=== PATIENT | female | born 1985 | race Caucasian/White ===

== ENCOUNTER 2017-01-11 19:39 | Emergency (ER) | payer BC ==
[~2017-01-11] VITALS: Ht 165.1 cm; Wt 84.8 kg
[2017-01-11 19:53] VITALS: Ht 165.1 cm; Wt 84.8 kg
[2017-01-11] MEDS ORDERED: GUAI-782 PO (20:11)
[2017-01-11] MEDS ORDERED: GUAI118L98 PO (20:11)
[2017-01-11] MEDS ORDERED: NORE7TAB PO (20:11)
[2017-01-11] MEDS ORDERED: ONDANSETRON 4mg/2ml INJECTION IV ONE (20:15)
[2017-01-11] MEDS ORDERED: NORMAL SALINE 1,000 ML IV ONE ×2 (20:15→22:15)
--- NOTE | 2017-01-11 20:16 | ERPDOC ---
Departure Disposition Decision Date: Jan 11, 2017 Disposition Decision Time: 23:53 Disposition: 01 DISCHARGED HOME, SELF-CARE Impression Impression Impression: Primary Impression: Gastroenteritis Severity: Moderate Condition: Stable Seen By: Mid-level only Referrals: MATT BURK MD (Family) Patient Instructions: Gastroenteritis (ED) Problems/Meds/Labs Reviewed?: Yes Medications reviewed and manag: Yes Additional Instructions: Take the Compazine as needed for nausea/vomiting. Take small frequent sips of clear liquids at home to maintain hydration. If she is unable to keep fluids down, fever, or abdominal pain or if repeated vomiting then return to ER. Follow up care ordered?: Yes Mental Status: Alert Scripts Prochlorperazine Maleate (Compazine) 10 Mg Tablet 10 MG PO TID, #7 TAB 0 Refills Take 1 tablet, by mouth, 3 times a day. Prov: RENE LEMON DIRECTOR OF DIRECT MARKETING 01/11/17 HPI - Abdominal Pain General Chief Complaint: Nausea,Vomiting,Diarrhea Stated Complaint: VOMITING Time Seen by Provider: 19:54 Source: patient History/Exam Limitations: no limitations HPI - Abdominal Pain Initial Comments She had onset of nausea/vomiting and diarrhea this morning. Has persisted today. Has had nausea for the last few days but it has gotten worse. She denies any fever or chills but has been very fatigued. Has had some generalized abdominal cramping at times but denies any sharp abdominal pain. Has not had any known sick contacts. Has not taken much at home for medications. Has been having some muscle cramps in her bilateral calves. Occurred At: home Onset: Gradual Duration: 6-12 hrs Quality: cramping Location: generalized abdomen Radiation: no radiation Associated Symptoms: back pain, fatigue, nausea/vomiting, DENIES: chest pain, diaphoresis, fever/chills, headache, heartburn, rash, shortness of breath, swelling/mass in abdomen, syncope, weakness Hx of Similar Symptoms: No Allergies: Coded Allergies: No Known Drug Allergies (Verified Allergy, Unknown, 01/11/17) Past History Past Medical History Pt denies signifigant PMH Surgical History Denies Surgeries Family History Family History: Negative Social History Smoking Status: Never smoker Substance Use Type: does not use Alcohol Intake: none Review of Systems Constitutional Constitutional: fatigue, weakness, DENIES: chills, dizziness, fever Cardiovascular Cardiac: DENIES: chest pain, orthopnea Rhythm/Rate: DENIES: irregular beat, palpitations Pulmonary Respiratory: DENIES: cough, dyspnea, sputum, tachypnea GI Upper Abdomen: nausea, pain, vomiting Lower Abdomen: diarrhea, pain, DENIES: constipation Integumentary Skin: DENIES: rash Neurological General: DENIES: headache, numbness, tingling, weakness Physical Exam General General Nourishment: well nourished, well developed, appears stated age, no acute distress, adult General Body Habitus: well groomed Vitals and Pain First Documented Vital Signs Date Time Temp Pulse Resp B/P Pulse Ox O2 Delivery O2 Flow Rate FiO2 01/11/17 19:53 72 18 123/76 97 Room Air Weight: Kilograms: Height (feet): Height (inches): Triage Pain Scale: RN VS reviewed by Provider: Yes Normal Exams: Neck: Full range of motion, without adenopathy, JVD, bruits or thyromegaly Chest/Resp: Clear all su, with good airflow, and symmetry bilaterally CV: Regular rate and rhythm, without murmur or gallop, Pulses 2+ all extremities, capillary refill, <2 seconds all ext., no pedal edema noted Abdomen: Bowel sounds positive, soft, non-tender, non-distended, no hepatosplenomegaly, masses or bruits noted Lymphatic: No lymphadenopathy, or lymphedema noted Integumentary: No rashes, hives, or bruising noted Neurologic: Patient is alert, and oriented Psychiatric: Patient exhibits, appropriate attention, emotion and affect ENMT (brief) ENMT Brief: NOT FOUND: mucosa moist (slightly dry mucus membranes) Differential Diagnoses Considering: Dehydration, Food Poisoning, Gastroenteritis, Hyponatremia, Hypokalemia, Hypoglycemia Progress Results/Orders Orders Procedure Category Date Status Time Iv Lock (Ed Only) EDM 01/11/17 Transmitted 20:02 Cbc W/Auto LAB 01/11/17 Complete Diff-Reflex Manual Cmp - Comprehensive LAB 01/11/17 Complete Metabolic Lipase LAB 01/11/17 Complete Normal Saline (Normal PHA 01/11/17 Complete Saline Iv) 20:15 Ondansetron Inj PHA 01/11/17 Complete (Zofran) 20:15 Ua, Dip Wreflex LAB 01/11/17 [employer]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 21:16 Promethazine PHA 01/11/17 Complete (Phenergan) 21:30 Morphine Sulfate PHA 01/11/17 Complete (Morphine) 21:30 Normal Saline (Normal PHA 01/11/17 Complete Saline Iv) 22:15 Prochlorperazine PHA 01/11/17 Complete (Compazine) 23:15 Prochlorperazine PHA 01/12/17 Complete (Prepack) (Compazine 00:00 Lab Results Laboratory Tests Test 01/11/17 20:27 White Blood Count 16.9T/MM3 Red Blood Count 5.01M/MM3 Hemoglobin 15.2GM/DL Hematocrit 44.3% Mean Corpuscular Volume 88.4UM3 Mean Corpuscular Hemoglobin 30.3UUG Mean Corpuscular Hemoglobin Concent 34.3GM/DL RDW Standard Deviation 36.4FL Platelet Count 374T/MM3 Mean Platelet Volume 9.2UM3 Immature Granulocyte % (Auto) % Neutrophils (%) (Auto) % Lymphocytes (%) (Auto) % Monocytes (%) (Auto) % Eosinophils (%) (Auto) % Basophils (%) (Auto) % Absolute Immature Granulocyte (auto T/MM3 Absolute Neutrophils (auto) T/MM3 Absolute Lymphocytes (auto) T/MM3 Absolute Monocytes (auto) T/MM3 Absolute Eosinophils (auto) T/MM3 Absolute Basophils (auto) T/MM3 Neutrophils % (Manual) 81.0% Band Neutrophils % 5.0% Lymphocytes % (Manual) 10.0% Monocytes % (Manual) 3.0% Basophils % (Manual) 1.0% Absolute Neutrophils (Manual) 13.7T/MM3 Band Neutrophils # 0.8T/MM3 Lymphocytes # (Manual) 1.7T/MM3 Monocytes # (Manual) 0.5T/MM3 Basophils # (Manual) 0.2T/MM3 Red Cell Morphology Comment Normal Turbidity < 20 Sodium Level 144MEQ/L Potassium Level 4.2MEQ/L Chloride Level 103MEQ/L Carbon Dioxide Level 25MEQ/L Anion Gap 16MEQ/L Blood Urea Nitrogen 16.0MG/DL Creatinine 1.0MG/DL Glomerular Filtration Rate Calc 65 BUN/Creatinine Ratio 16RATIO Glucose Level 156MG/DL Calculated Osmolality 281MOSM/KG Calcium Level 9.9MG/DL Total Bilirubin 1.00MG/DL Icterus Index < 2 Aspartate Amino Transf (AST/SGOT) 33U/L Alanine Aminotransferase (ALT/SGPT) 34U/L Alkaline Phosphatase 86U/L Total Protein 8.8G/DL Albumin 4.8G/DL Globulin 4.0G/DL Albumin/Globulin Ratio 1.2RATIO Lipase 132U/L Chemistry Specimen Hemolysis < 15 Medications Current ED Medications Sodium Chloride (Normal Saline IV) 1,000 ml @ 1,000 mls/hr Q1H ONCE IV Last administered on 01/11/17 20:23; Start 01/11/17 at 20:15; Stop 01/11/17 at 21:14; Status DC Ondansetron HCl (Zofran) 4 mg O ONCE IV Last administered on 01/11/17 20:24; Start 01/11/17 at 20:15; Stop 01/11/17 at 20:16; Status DC Promethazine HCl (Phenergan) 25 mg O ONCE IV Last administered on 01/11/17 21: 30; Start 01/11/17 at 21:30; Stop 01/11/17 at 21:31; Status DC Morphine Sulfate 2 mg 2 mg O ONCE IV Last administered on 01/11/17 21:42; Start 01/11/17 at 21:30; Stop 01/11/17 at 21:31; Status DC Sodium Chloride (Normal Saline IV) 1,000 ml @ 1,000 mls/hr Q1H ONCE IV Last administered on 01/11/17 22:48; Start 01/11/17 at 22:15; Stop 01/11/17 at 23:14; Status DC Prochlorperazine Edisylate (Compazine) 10 mg O ONCE IV Last administered on 23:22; Start 01/11/17 at 23:15; Stop 01/11/17 at 23:16; Status DC Prochlorperazine Maleate (COMPAZINE (PrePack)) 1 pack O ONCE SENT HOME ; Start 01/12/17 at 00:00; Stop 01/12/17 at 00:01; Status DC Progress Progress WBC is elevated at 16.9 with 80% neutrophils and 5% bands. CMP and lipase today are normal. She continues to deny pain at all but the nausea persists after Zofran given. Did give one does of Promethazine and she does fall asleep. She awakens to nurse for reevaluation and again c/o nausea. After compazine given she is able to rest and does states that there is a decrease in her nausea quite a bit. Will go ahead and dismiss her to home and have her continue to take the Compazine as needed. Strict return precautions are given. RENE LEMON APRN Jan 11, 2017 20:16
[2017-01-11 20:36] LABS: HCT - HEMATOCRIT 44.3 % (36-46); HGB - HEMOGLOBIN 15.2 GM/DL (12-16); MEAN CORPUSCULAR HGB 30.3 UUG (26-34); MEAN CORPUSCULAR HGB CONC(MCHC 34.3 GM/DL (31-37); MEAN CORPUSCULAR VOLUME 88.4 UM3 (80-100); MEAN PLATELET VOLUME 9.2 UM3 (9.4-12.4); RED BLOOD COUNT 5.01 M/MM3 (4.00-5.20); WBC - WHITE BLOOD COUNT 16.9 T/MM3 (4.5-11.0)
[2017-01-11 20:41] LABS: ALBUMIN 4.8 G/DL (3.5-5.0); ALBUMIN/GLOBULIN RATIO 1.2 RATIO (1.1-2.2); ALKALINE PHOSPHATASE 86 U/L (38-126); ALT (SGPT) 34 U/L (9-52); ANION GAP 16 MEQ/L (5-15); AST (SGOT) 33 U/L (14-36); BUN/CREATININE RATIO 16 RATIO (6-26); CALCIUM 9.9 MG/DL (8.4-10.2); CHLORIDE 103 MEQ/L (98-107); CO2 - CARBON DIOXIDE 25 MEQ/L (22-30); GLOMERULAR FILTRATION RATE 65; GLUCOSE 156 MG/DL (65-110); LIPASE 132 U/L (23-300); POTASSIUM 4.2 MEQ/L (3.6-5); SODIUM 144 MEQ/L (134-144); TOTAL PROTEIN 8.8 G/DL (6.3-8.2)
--- NOTE | 2017-01-11 20:43 | NUR ---
STATUS PT RESTING IN BED. REPORTS MILD, INTERMITTENT CRAMPING IN LEGS AND A MOMENT OF CRAMPING IN HER BACK. DENIES NEEDS AT THIS TIME. AT BEDSIDE.
[2017-01-11 20:48] LABS: BAND NEUTROPHILS # 0.8 T/MM3; BASOPHILS # (MANUAL) 0.2 T/MM3 (0-0.2); LYMPHOCYTES # (MANUAL) 1.7 T/MM3 (1-4.8); MONOCYTES # (MANUAL) 0.5 T/MM3 (0-0.8); NEUTROPHILS #(MANUAL)-ABSOLUTE 13.7 T/MM3 (1.8-7.7); TOTAL CELLS COUNTED 100 %
--- NOTE | 2017-01-11 21:15 | NUR ---
STATUS PT IN BED ON SIDE. PT APPEARS TO BE UNCOMFORTABLE - WHEN ASKED - C/O CONTINUED NAUSEA AND PAIN IN UPPER BACK. SPOUSE AT SIDE. PROVIDER NOTIFIED OF PT STATUS.
[2017-01-11] MEDS ORDERED: MORPHINE SULFATE 2 MG SYRINGE IV ONE (21:30)
[2017-01-11] MEDS ORDERED: PROMETHAZINE 25 MG INJECTION IV ONE (21:30)
[2017-01-11] MEDS ORDERED: PROCHLORPERAZINE 10mg/2ml INJECTION IV ONE (23:15)
--- NOTE | 2017-01-11 23:45 | NUR ---
STATUS PT RESTING WITH EYES CLOSED. WILL ANSWER WHEN SPOKEN TO. REPORTS DROWSINESS, BUT IMPROVEMENT IN PAIN AND NAUSEA. DENIES LEG CRAMPING AT THIS TIME.
[2017-01-11] MEDS ORDERED: PROC-14 PO (23:55)
[2017-01-12] MEDS ORDERED: PROCHLORPERAZINE 10MG (PrePack) SENT HOME ONE
[2017-01-12 00:05] VITALS: BP 121/78; PULSE 75; RESP 16; O2SAT 99
--- NOTE | 2017-01-12 00:05 | NUR ---
DEPART PT AND SPOUSE GIVEN DI FOR GASTROENTERITIS, COMPAZINE, F/U. PREPAK/RX PROVIDED FOR COMPAZINE. PT AND SPOUSE VERBALIZE UNDERSTANDING OF DI. QUESTIONS ASKED/ANSWERED - BOTH DENY FURTHER QUESTIONS/NEEDS AT THIS TIME. IV SITE REMOVED. PERSONAL BELONGINGS GATHERED. PT TRANSFERRED FROM CART TO WHEEL - STANDBY ASSIST. ESCORTED TO ED EXIT VIA WHEEL CHAIR WHERE SPOUSE MET WITH PRIVATE VEHICLE. PT TO PRIVATE VEHICLE PASSENGER SIDE - GAIT STABLE, NO SIGN OF DISTRESS.
--- NOTE | 2017-01-12 00:05 | NUR ---
VITALS - ROOM CLEANED AND MONITOR CLEARED PRIOR TO OBTAINING VITALS FOR TIME PT HERE.
== END 2017-01-12 00:05 | disposition home or self-care (01) ==
LOC: ED 19:39
DX: K52.9 Noninfective gastroenteritis and colitis, unspecified (principal)
CPT/HCPCS: 80053; 83690; 85025